=== PATIENT | female | born 1965 | race Caucasian/White ===

== ENCOUNTER → 2017-01-10 | Outpatient (CLI) | payer OTHER ==
[~2017-01-10] MED LIST: ALBU1AER9 INH; ALBU1NEB10 INH; ALPR-411 PO; CHOL100010 PO; CLOT1CRE47 TD; IBUP-1050 PO; LEVO125T4 PO; PSEU30TA20 PO; benadryl TD
--- NOTE | 2017-01-10 15:14 | DIAGNOSTIC IMAGING REPORT ---
EXAMINATION: RENAL ULTRASOUND CLINICAL HISTORY: Right flank pain COMPARISON STUDY: None FINDINGS: The right kidney measures 10.0 cm. The left kidney measures 10.0 cm. There is no evidence of hydronephrosis. There are no renal masses. No bladder abnormalities are visualized. Bilateral ureteral jets were visualized. IMPRESSION : Normal study Electronically signed by: Mann Leblanc M.D. 01/10/2017 3:12 PM Dictated Date/Time: 01/10/2017 3:11 PM
--- NOTE | 2017-01-10 15:22 | DIAGNOSTIC IMAGING REPORT ---
L-SPINE MIN 4 VIEWS ROUTINE CLINICAL HISTORY: Flank pain. Back pain. COMPARISON: Lumbar spine radiographs October 22, 2012. FINDINGS: Mild rightward curvature of the lumbar spine is unchanged since exam October 22, 2012. Vertebral body heights are maintained. There is no fracture or suspicious lesion. Sacroiliac joints are intact. Disc spaces are preserved. There is minimal endplate osteophytosis and facet arthrosis. IMPRESSION: 1. No lumbar spine fracture or subluxation. 2. Minimal multilevel degenerative changes of the lumbar spine. 3. No change in mild rightward curvature of the lumbar spine. Electronically signed by: Dev Bradley M.D. 01/10/2017 3:20 PM Dictated Date/Time: 01/10/2017 3:19 PM
== END | disposition home or self-care (01) ==
LOC: C.ULTRBC 14:37
PROVIDERS: ATTEND Family Medicine
DX: M54.9 Dorsalgia, unspecified (principal); R10.9 Unspecified abdominal pain; R39.11 Hesitancy of micturition

== ENCOUNTER → 2017-02-26 | Outpatient (CLI) | payer OTHER ==
[~2017-02-26] MED LIST changes: +CETI10TA84 PO; +FLUT0.15; +LEVO-519 PO; -LEVO125T4 PO; +LEVO125T5 PO; +PRED-301 PO; +PRED20TA PO
[2017-02-26 16:49] LABS: BASO % 0.4 %; BASO ABS # 0.03 K/uL (0-0.2); COMPLETE YES; EOS % 1.1 %; HEMATOCRIT 39.3 % (37-47); IG% 0.1 %; LYMPH % 35.8 %; LYMPH ABS # 2.86 K/uL (1.2-3.4); MEAN CELL VOLUME 88.7 fL (80-100); MEAN CORPUSCULAR HEMOGLOBIN 30.5 pg (25-34); MEAN CORPUSCULAR HGB CONC 34.4 g/dl (32-36); MEAN PLATELET VOLUME 9.5 fL (7.4-10.4); MONO % 8.5 %; NEUT % 54.1 %; PLATELET COUNT 334 K/uL (130-400); RED BLOOD COUNT 4.43 M/uL (4.2-5.4)
== END | disposition home or self-care (01) ==
LOC: C.LAB1850 15:01
PROVIDERS: ATTEND Obstetrics & Gynecology
DX: N93.9 Abnormal uterine and vaginal bleeding, unspecified (principal)

== ENCOUNTER → 2017-02-26 | Outpatient (CLI) | payer OTHER | END | disposition home or self-care (01) | LOC: C.PAPS 09:08 | PROVIDERS: ATTEND Obstetrics & Gynecology | DX: N93.9 Abnormal uterine and vaginal bleeding, unspecified (principal) ==

== ENCOUNTER → 2017-03-06 | Outpatient (CLI) | payer OTHER | END | disposition home or self-care (01) | LOC: C.PATHSPEC 14:04 | PROVIDERS: ATTEND Obstetrics & Gynecology | DX: N93.9 Abnormal uterine and vaginal bleeding, unspecified (principal) ==

== ENCOUNTER → 2017-04-04 | Outpatient (CLI) | payer OTHER ==
[2017-04-04 11:31] LABS: THYROID STIMULATING HORMONE 0.676 uIu/ml (0.300-4.500)
== END | disposition home or self-care (01) ==
LOC: C.LAB1850 09:46
PROVIDERS: ATTEND Physician Assistant
DX: E03.9 Hypothyroidism, unspecified (principal)

== ENCOUNTER → 2017-08-16 | Outpatient (CLI) | payer OTHER ==
[~2017-08-16] MED LIST changes: -CETI10TA84 PO; -FLUT0.15; -LEVO-519 PO; +LEVO125T4 PO; -LEVO125T5 PO; -PRED-301 PO; -PRED20TA PO
[2017-08-16 12:42] LABS: THYROID STIMULATING HORMONE 1.26 uIu/ml (0.300-4.500)
== END | disposition home or self-care (01) ==
LOC: C.LAB1850 10:28
PROVIDERS: ATTEND Physician Assistant
DX: E03.9 Hypothyroidism, unspecified (principal)

== ENCOUNTER → 2018-03-06 | Outpatient (CLI) | payer OTHER ==
[~2018-03-06] MED LIST changes: +CETI10TA84 PO; -CHOL100010 PO; -CLOT1CRE47 TD; +FLUT0.15; -IBUP-1050 PO; +LEVO-519 PO; -LEVO125T4 PO; +PRED-301 PO; -PSEU30TA20 PO; -benadryl TD
--- NOTE | 2018-03-06 08:07 | DIAGNOSTIC IMAGING REPORT ---
ABDOMINAL ULTRASOUND COMPLETE HISTORY: Right upper quadrant abdominal pain.. COMPARISON: None. FINDINGS: Pancreas: The pancreatic head and tail are obscured by overlying bowel gas. The remaining portions of the pancreas are within normal limits. Liver: Unremarkable. Gallbladder: No gallbladder wall thickening. No gallstones. CBD: 6 mm. Kidneys: No hydronephrosis. The lower pole of the right kidney is obscured by overlying bowel gas. Spleen: Normal in size. Aorta: The proximal abdominal aorta is normal in caliber. The mid to distal aorta is obscured by overlying bowel gas. IVC: Patent. IMPRESSION: No significant abnormality identified within the within the abdomen. Electronically signed by: Andrea Walters M.D. 03/06/2018 8:06 AM Dictated Date/Time: 03/06/2018 8:04 AM
== END | disposition home or self-care (01) ==
LOC: C.ULTR 07:04
PROVIDERS: ATTEND Family Medicine
DX: R06.02 Shortness of breath (principal); G89.12 Acute post-thoracotomy pain; R10.11 Right upper quadrant pain

== ENCOUNTER → 2018-03-26 | Outpatient (CLI) | payer OTHER ==
[~2018-03-26] MED LIST changes: -PRED-301 PO
--- NOTE | 2018-03-26 17:12 | DIAGNOSTIC IMAGING REPORT ---
THORACIC SPINE 3 VIEWS ROUTINE HISTORY: Pain R76.8 THANIA [id number] Right-sided thoracic back [id number] COMPARISON: None. FINDINGS: There is no fracture. Mild scoliosis. Minimal degenerative disc changes throughout. No evidence for compression deformity. IMPRESSION: Minimal degenerative disc change. Scoliosis. No acute process. The above report was generated using voice recognition software. It may contain grammatical, syntax or spelling errors. Electronically signed by: Elpidio Murdock M.D. 03/26/2018 5:11 PM Dictated Date/Time: 03/26/2018 5:10 PM
[2018-03-26 18:05] LABS: POTASSIUM 3.5 mmol/L (3.5-5.1)
== END | disposition home or self-care (01) ==
LOC: C.RAD1850 16:53
PROVIDERS: ATTEND Internal Medicine Rheumatology
DX: E03.9 Hypothyroidism, unspecified (principal); M54.6 Pain in thoracic spine; R76.8 Other specified abnormal immunological findings in serum; E55.9 Vitamin D deficiency, unspecified

== ENCOUNTER → 2018-04-10 | Outpatient (CLI) | payer OTHER ==
--- NOTE | 2018-04-10 14:51 | DIAGNOSTIC IMAGING REPORT ---
BONE SCAN WHOLE BODY CLINICAL HISTORY: 52 years-old Female presenting with R76.8 THANIA positive M54.6 Right-sided thoracic back pain Total-body. TECHNIQUE: Planar anterior and posterior imaging of the whole body was performed 3 hours following the intravenous administration of 25.8 mCi Tc-99m MDP. COMPARISON: Thoracic spine radiograph from 03/26/2018. FINDINGS: No focal radiotracer uptake. Normal distribution in the genitourinary tract, osseous structures, and soft tissues. Mild levocurvature of the lower thoracic spine. No radiotracer activity to suggest focal degenerative change in the spine or elsewhere in the body. IMPRESSION: 1. No osseous abnormality by nuclear bone scan. 2. Thoracic spine scoliosis. Electronically signed by: Giancarlo Polo M.D. 04/10/2018 2:50 PM Dictated Date/Time: 04/10/2018 2:47 PM
== END | disposition home or self-care (01) ==
LOC: C.NUCL 10:52
PROVIDERS: ATTEND Internal Medicine Rheumatology
DX: M41.9 Scoliosis, unspecified (principal); M54.6 Pain in thoracic spine; R76.8 Other specified abnormal immunological findings in serum